=== PATIENT | male | born 1970 | race African-American/Black ===

== ENCOUNTER → 2020-03-01 10:11 | Outpatient (CLI) | payer BC, SELFPAY ==
--- NOTE | ~2020-03-01 | XR_ITS ---
EXAMINATION: XR lumbar spine 2-3V DATE: 03/01/2020 10:48 INDICATION: Low back pain TECHNIQUE: Anteroposterior and lateral views of the lumbar spine, and cone-down lateral view of the l umbosacral junction were obtained. COMPARISON: CT, 10/28/2017 FINDINGS: Bone alignment is normal. There is no fracture. There is mild loss of intervertebral disc s pace height at L4-5. The vertebral body heights are maintained. Degenerative osteophytes project from the anterior endplates of multiple vertebral bodies. Calcified atherosclerosis is noted. The bowel g as pattern is normal. IMPRESSION: 1. Mild lumbar spondylosis without acute findings. Reviewed, dictated and finalized at location A.
== END ==
PROVIDERS: PCP Family Medicine Adolescent Medicine; Visit Provider Physician Assistant
DX: M47.896 Other spondylosis, lumbar region (principal)
CPT/HCPCS: 72100

== ENCOUNTER → 2021-03-18 08:29 | Outpatient (CLI) | payer BC, SELFPAY ==
--- NOTE | ~2021-03-18 | MR_ITS ---
EXAMINATION: MR lumbar spine wo con EXAM DATE: 03/18/2021 09:11 INDICATION: Low back pain, bilateral leg pain. TECHNIQUE: Multi-sequential, multiplanar MR images of the lumbar spine were obtained without contrast . Sagittal T1, T2, T2 fat saturation images. Axial T2 weighted images. There is no prior study for comparison. FINDINGS: The vertebral bodies are aligned in the AP dimension. Vertebral body and disc heights are w ell-maintained. There are scattered focal signal abnormalities consistent with hemangiomata, otherwis e without focal suspicious marrow signal abnormalities. The conus medullaris terminates at the T12-L1 level and has normal signal intensity and morphology. Paraspinal soft tissue is unremarkable. L5-S1 small annular fissure. Level by level evaluation: T12-L1: Disc does not extend beyond the endplate margin. Facet arthropathy: None. Neural foraminal stenosis: No stenosis. Central canal stenosis: No stenosis. L1-L2: Disc does not extend beyond the endplate margin. Facet arthropathy: None. Neural foraminal stenosis: No stenosis. Central canal stenosis: No stenosis. L2-L3: Disc does not extend beyond the endplate margin. Facet arthropathy: Mild. Neural foraminal stenosis: No stenosis. Central canal stenosis: No stenosis. L3-L4: There is a minimal diffuse disc bulge. Facet arthropathy: Mild. Neural foraminal stenosis: No stenosis. Central canal stenosis: No stenosis. L4-L5: There is a mild diffuse disc bulge. Facet arthropathy: Mild. Neural foraminal stenosis: Mild bilateral. Central canal stenosis: No stenosis. L5-S1: There is a mild diffuse disc bulge, annular fissure. Facet arthropathy: Mild to moderate. Neural foraminal stenosis: Mild to moderate bilateral. Central canal stenosis: Mild. IMPRESSION: 1. Mild lumbar spondylosis. Reviewed, dictated and finalized at location B. IMPRESSION: 1. Mild lumbar spondylosis.
== END ==
PROVIDERS: PCP Family Medicine Adolescent Medicine
DX: M47.896 Other spondylosis, lumbar region (principal)
CPT/HCPCS: 72148

== ENCOUNTER 2022-05-24 10:13 | Emergency (ER) | payer OTHER, BC, SELFPAY ==
--- NOTE | ~2022-05-24 | XR_ITS ---
XR chest 2V DATE: 05/24/2022 14:07 INDICATION: Possible pneumonia TECHNIQUE: PA and lateral views COMPARISON: None FINDINGS: Normal heart size. No hilar or mediastinal enlargement is evident. There is prominent infiltrate and/atelectasis in the right lower lung and mild elevation of the right leaf of the diaphragm. Minimal discoid atelectasis or scarring in the left lower lung. No pleural effusion or pulmonary vascular congestion or pneumothorax is detected. Included skeletal structures are unremarkable other than degenerative spurring of the thoracic spine. IMPRESSION: Prominent patchy infiltrate or atelectasis in the right lower lung and mild elevation of right diaphragm Minimal discoid atelectasis or scarring, left lower lung Reviewed, dictated and finalized at location A. [employer]
--- NOTE | ~2022-05-24 | CT_ITS ---
EXAMINATION: CT lumbar spine wo/w con DATE: 05/24/2022 14:23 INDICATION: post surgical, lumbar fusion, rule out abscess . TECHNIQUE: Computed tomography (CT) of the lumbar spine was performed without and with 100 mL Omnipaq ue 350 intravenous contrast. Automated exposure control and iterative reconstruction technique were e mployed. The dose-length product was 2442.41 mGy-cm. COMPARISON: X-ray lumbar spine 03/01/2020, MR lumbar spine 03/18/2021. FINDINGS: Anterior and posterior L5-S1 fusion hardware. No hardware fracture or perihardware lucency. Interbody device is in good position. Multilevel degenerative disc disease, with predominantly later al bridging osteophytes at nearly all lumbar levels. 5 nonrib-bearing lumbar-type vertebral bodies. P edicles intact. Normal vertebral body alignment. Vertebral body heights preserved. Mild multilevel fa cet sclerosis. Mild presacral edema. Atherosclerotic arterial calcifications. Bilateral psoas muscle atrophy. No severe central canal or severe neural foraminal narrowing. Post surgical changes in the l ower lumbar soft tissues. 13 mm fluid collection in the right central paraspinous musculature at the level of L4 with faint rim enhancement. IMPRESSION: 1. 13 mm faintly rim-enhancing fluid collection in the right paraspinous musculature at L4, may repre sent a resolving postsurgical collection versus developing abscess. 2. Anterior and posterior L5-S1 fusion hardware. No CT evidence of hardware-related complication. 3. No acute osseous fracture or traumatic malalignment detected in the lumbar spine. Reviewed, dictated and finalized at location K. R TECH IMPRESSION: 1. 13 mm faintly rim-enhancing fluid collection in the right paraspinous muscul ature at L4, may represent a resolving postsurgical collection versus developin g abscess. 2. Anterior and posterior L5-S1 fusion hardware. No CT evidence of hardware-rel ated complication. 3. No acute osseous fracture or traumatic malalignment detected in the lumbar s pine.
[2022-05-24 10:51] VITALS: BP 146/87; PULSE 110; RESP 20; TEMP 37.4; O2SAT 99
[2022-05-24] MEDS: LACTATED RINGERS 1,000 ML 999 ML IV CONT (12:45)
[2022-05-24] MEDS: HYDROmorphone HCL INJ (*CRX) 1 MG/ML SYR IV PUSH (12:46)
[2022-05-24] MEDS: ONDANSETRON INJ 4 MG/2 ML VIAL IV PUSH (12:46)
[2022-05-24] MEDS: GABAPENTIN 300 MG CAPSULE PO (12:46)
[2022-05-24 12:54] LABS: Basophils Percent Auto 0.2 % (0.2-1.2); Eosinophils Absolute Auto 0.1 K/mm3 (0-0.3); Eosinophils Percent Auto 0.4 % (0-4.4); Hematocrit 37.4 % (42.0-52.0); Hemoglobin 12.5 g/dL (14.0-18.0); Immature Granulocyte Absolute 0.07 K/mm3 (0.00-0.031); Immature Granulocyte Percent A 0.5 % (0-0.5); Lymphocytes Absolute Auto 0.75 K/mm3 (0.9-3.2); Mean Corpuscular HGB Conc 33.4 g/dl (32-36); Mean Corpuscular Hemoglobin 28.8 pg (26-34); Mean Corpuscular Volume 86.2 fl (80-100); Mean Platelet Volume 9.9 fl (7.4-10.4); Monocytes Absolute Auto 1.1 K/mm3 (0.1-0.6); Monocytes Percent Auto 7.5 % (2.6-8.5); Neutrophils Absolute Auto 12.9 K/mm3 (1.3-6.7); Neutrophils Percent Auto 86.4 % (45.5-73.1); Platelet Count Result 322 k/mm3 (150-375); Red Blood Count 4.34 M/mm3 (4.6-6.20); Red Cell Distribution Width 13.3 % (11.5-14.5); White Blood Count 14.9 K/mm3 (4.5-10.0)
[2022-05-24 13:12] LABS: Appearance Urine Clear (Clear); Bilirubin Urine Negative (Negative); Blood Urine Trace-lysed (Negative); Color Urine Yellow (Yellow); Glucose Urine UA Negative (Negative); Ketones Urine Negative (Negative); Leukocyte Esterase Ur Trace LEU/UL (Negative); Nitrate Urine Negative (Negative); Protein Urine Negative (Negative); Urobilinogen Urine 0.2 mg/dL (<2.0); pH Urine 5.5 (5.0-9.0)
[2022-05-24 13:16] LABS: Add Urine Microscopic? YES; Bacteria Urine Trace /hpf; Mucus Urine Few /lpf; Squamous Epithelial Cell Urine Rare /hpf (Few)
[2022-05-24 13:17] LABS: INR 1.2; Prothrombin Time 14.4 Seconds (11.1-14.7)
[2022-05-24 13:18] LABS: Partial Thromboplastin Time 32.3 SECONDS (22.3-36.8)
[2022-05-24 13:19] LABS: Alanine Aminotransferase 18 U/L (6-50); Alkaline Phosphatase 131 U/L (38-126); Anion Gap 9 mmol/L (8-16); Aspartate Amino Transferase 20 U/L (17-59); Bilirubin,Total 1.1 mg/dL (0.2-1.3); Blood Urea Nitrogen 13 mg/dL (9-20); Calcium 8.9 mg/dL (8.4-10.2); Carbon Dioxide 27 mmol/L (22-30); Chloride 101 mmol/L (98-107); Estimated CRCL calculation 115 ml/min; Estimated Glomerular Filt Rate > 60; Glucose 118 mg/dL (65-110); Potassium 4.2 mmol/L (3.4-5.0); Sodium 137 mmol/L (137-145)
--- NOTE | 2022-05-24 13:22 | ED.BACK ---
HPI - Back Pain/Injury General Chief Complaint: Back Pain/Injury Stated Complaint: back pain Time Seen by Provider: 05/24/22 12:03 Source: patient and RN notes reviewed Mode of arrival: ambulatory Limitations: no limitations History of Present Illness HPI Narrative: This is a 51 year old male with history of chronic back issues s/p lumbar fusion who presents for evaluation of low back pain. Patient states he has lumbar fusion in March at [facility]. He states he has been doing well and he had post op check 10 days ago. He has been taking oxycodone 1 pill every 2 hours since his surgery. He developed severe pain on Wednesday. He states his pain is located in low back and it radiates down both legs. He has difficulty walking due to the pain. He denies leg swelling, numbness or tingling. He denies urinary retention or bowel incontinence. He also denies saddle anesthesia. He denies fever, chills, nausea or vomiting. He has not taken any pain medication since 2 am this morning. Related Data Allergies Allergy/AdvReac Type Severity Reaction Status Date / Time Sulfa (Sulfonamide Allergy Mild Verified 03/06/14 17:31 Antibiotics) Review of Systems Review of Systems: All systems reviewed & are unremarkable except as noted in HPI and below Constitutional: Constitutional: Denies chills, Denies fatigue and Denies fever(s) Cardiovascular: Cardiovascular: Denies chest pain and Denies radiating jaw, neck or arm pain Respiratory: Respiratory: Denies chest congestion Gastrointestinal: Gastrointestinal: Denies abdominal pain, Denies nausea and Denies vomiting Genitourinary: Genitourinary: Denies hematuria Musculoskeletal: Musculoskeletal: Denies no additional musculoskeletal complaints, Reports back pain and Denies arthralgias PMFSH Past Medical History Medical History (Updated 05/24/22 @ 21:03 by Shawnee Leyva MD) Hypokalemia Lumbar radiculopathy Surgical History Surgical History (Updated 05/24/22 @ 21:03 by Shawnee Leyva MD) S/P lumbar spinal fusion Social History Social History (Updated 05/24/22 @ 21:04 by Shawnee Leyva MD) Tobacco type: cigars Alcohol intake: never Substance use: never Exam Const: General: alert Nutritional Appearance: well nourished Orientation/consciousness: patient oriented x3 Other: patient appears to be pain HENMT: Head: normal to inspection Eyes: EOM: EOMs intact bilaterally Chest: Chest palpation & inspection: normal inspection of the chest Resp: Effort & Inspection: normal respiratory effort Auscultation: clear to auscultation bilaterally Cardio: Rate: regular rate Rhythm: regular rhythm Heart sounds: no murmurs GI: Auscultation: normal bowel sounds Other: soft, nontenderness ; there is healin low midline incision that is closed, no drainage, no erythema. Back/Spine/Pelvis: Cervical Spine: cervical ROM normal Thoracic/Lumbar Spine: Thoracic/lumbar spine scar(s) (healing lumbar incision- no erythema, no drainage, no TTP), No thoracic spinal tenderness and No lumbar spinal tenderness Skin: General skin exam: normal color Rashes: no rashes Wounds: no wounds Neuro: General: patient oriented x3, moves all extremities, no meningeal signs and CN's II-XI intact bilaterally Other: sensation intact Extrem: General: normal to inspection Other: bilateral pedal pulses present, no sign of ischemia, sensation intact Psych: Mental Status: mental status grossly normal Affect: normal affect Attitude: cooperative Course Reevaluation(s) Reevaluation #1: Patient's pain has improved. He does not have signs of cauda equina. I discussed case with DR. London with spine. He states patient could be given Toradol and he can be discharged. No steroids to be given at this point. Patien will be started on antibiotics for possible lung infiltrate. Surgical sites do not look infected so I do not believe abscess. Dr. London states he will get patient
[2022-05-24 13:32] LABS: CRP 20.6 mg/dL (<1.0)
[2022-05-24 15:26] LABS: Influenza A QL RT-PCR Negative (Negative); Influenza B QL RT-PCR Negative (Negative); SARS-CoV-2 RNA PCR Negative
[2022-05-24] MEDS: KETOROLAC 30 MG/ML VIAL (*BKC) IV PUSH (16:36)
[2022-05-24 17:29] VITALS: BP 144/74; PULSE 88; RESP 18; O2SAT 99
== END 2022-05-24 17:29 | disposition home or self-care (01) ==
PROVIDERS: Emergency Provider General Practice; PCP Family Medicine Adolescent Medicine
DX: M54.16 Radiculopathy, lumbar region (principal); R91.8 Other nonspecific abnormal finding of lung field; Z20.822 Contact with and (suspected) exposure to COVID-19; Z98.1 Arthrodesis status
CPT/HCPCS: 36415; 71046; 72133; 80053; 81001; 85025; 85610; 85730; 86140; 87636; 96361; 96374; 96375; 99284; A9270; J1170; J1885; J2405; J7120; Q9967

== ENCOUNTER 2023-04-07 03:16 | Day surgery (SDC) | payer BC, SELFPAY ==
[2023-03-26 11:37] VITALS: BMI 25.9
[2023-04-07 07:36] VITALS: BP 128/76; PULSE 96; RESP 18; TEMP 36.3; O2SAT 100; BMI 26.6
[2023-04-07] MEDS: LACTATED RINGERS 1,000 ML 150 ML IV CONT (07:52)
--- NOTE | 2023-04-07 08:24 | WPDANESEPPF ---
Anes - Initial Pre Proc Eval Procedure: Operation Date: 04/07/23 09:00 Proposed Procedures p Screening Colonoscopy - Mustapha Saleh MD Date/Time: 04/07/23 08:24 Surgeon: Mustapha Saleh MD Pre Op Diagnosis: neoplasm screening Patient Data Age: 52 Gender: M Height: 1.78 m Weight: 84.1 kg Last Vital Signs Temp 97.3 F L 04/07/23 07:36 Pulse 96 04/07/23 07:36 Resp 18 04/07/23 07:36 BP 128/76 04/07/23 07:36 Pulse Ox 100 04/07/23 07:36 O2 Del Method Room Air 04/07/23 07:36 Allergies Allergy/AdvReac Type Severity Reaction Status Date / Time Sulfa (Sulfonamide Allergy Mild Itching Verified 04/07/23 07:43 Antibiotics) Home Medications Medication Instructions Recorded Confirmed Type amlodipine 10 mg tablet 10 mg PO DAILY #90 tabs 01/21/23 04/07/23 Rx meloxicam 15 mg tablet 15 mg PO DAILY #90 tabs 01/21/23 04/07/23 Rx Patient hx anesthesia problems: none Family hx anesthesia problems: none Results Review: All pre-operative results and documents have been reviewed as part of the pre-operative evaluation. [facility] Past Medical History Medical History Hypokalemia Lumbar radiculopathy Surgical History Surgical History S/P lumbar spinal fusion L5-S1 fusion 04/02/22 with [facility] Family History Family History Mother Breast cancer Sibling Diabetes mellitus Social History Social History Smoking status: Current some day smoker Tobacco type: cigars Additional smoking assessment comments: Never smoked cigarettes, has an occasional cigar Alcohol intake: current Drinks per week: 5 Substance use: never Substance use type: does not use Lack of Transportation: No Lack of Food: Never True Current Housing: I Have Housing Difficulty Paying Gas/Electric Bills: No Difficulty Paying for Meds: No Currently Unemployed: No Education: High School Diploma/GED Difficulty w/ Childcare or Family Care: No Living arrangements: with family Spiritual care concerns: No Anes - Eval Final PreProcedure Day of Procedure 04/07/23 08:24 Patient weight: normal Heart: regular rate and rhythm Lungs: clear to auscultation Airway: Mallampati scale class II Neurological: alert and oriented Last oral intake: >/= 8 hours ASA classification: II Emergent: no Anesthetic plan: proceed Anesthesia type and monitoring: general GIVS and standard monitoring Results Review: All pre-operative results and documents have been reviewed as part of the pre-operative evaluation. Informed Consent: The patient's anesthetic plan and its attendant risks and benefits were discussed with the patient/family/POA. Questions were solicited and answers provided to the satisfaction of the patient/family/POA.
--- NOTE | 2023-04-07 08:33 | PM.HPGS ---
History of Present Illness History of Present Illness Consent: Risks, benefits, and alternatives have been discussed and questions answered. Patient agrees to proceed with procedure. Chief complaint: neoplasm screening Narrative: Jayant Moraes is a 52 year old male here for first screening colonoscopy Review of Systems Constitutional: Constitutional: Denies headache(s) and Denies weakness Eyes: Eyes: Denies blurry vision ENT: Reports Normal hearing present, Denies headache(s) and Denies neck pain Cardiovascular: Cardiovascular: Denies chest pain and Denies dyspnea Respiratory: Respiratory: Denies dyspnea Gastrointestinal: Gastrointestinal: Reports no additional gastrointestinal complaints Genitourinary: Genitourinary: Denies dysuria Musculoskeletal: Musculoskeletal: Denies neck pain Integumentary/Breasts: Skin/Breast: Denies dry skin Neurologic: Reports Normal hearing present, Denies headache(s) and Denies weakness Psychiatric: Psychiatric: Denies anxiety Endocrine: Endocrine: Denies change in body appearance Hematologic/Lymphatic: Hematologic/Lymphatic: Denies easy bleeding Allergic/Immunologic: Allergic/Immunologic: Denies urticaria PMFSH Past Medical History Medical History Hypokalemia Lumbar radiculopathy Surgical History Surgical History S/P lumbar spinal fusion L5-S1 fusion 04/02/22 with [facility] Family History Family History Mother Breast cancer Sibling Diabetes mellitus Social History Social History Smoking status: Current some day smoker Tobacco type: cigars Additional smoking assessment comments: Never smoked cigarettes, has an occasional cigar Alcohol intake: current Drinks per week: 5 Substance use: never Substance use type: does not use Lack of Transportation: No Lack of Food: Never True Current Housing: I Have Housing Difficulty Paying Gas/Electric Bills: No Difficulty Paying for Meds: No Currently Unemployed: No Education: High School Diploma/GED Difficulty w/ Childcare or Family Care: No Living arrangements: with family Spiritual care concerns: No Meds Home Medications and Allergies Home Medications Medication Instructions Recorded Confirmed Type amlodipine 10 mg tablet 10 mg PO DAILY #90 tabs 01/21/23 04/07/23 Rx meloxicam 15 mg tablet 15 mg PO DAILY #90 tabs 01/21/23 04/07/23 Rx Allergies Allergy/AdvReac Type Severity Reaction Status Date / Time Sulfa (Sulfonamide Allergy Mild Itching Verified 04/07/23 07:43 Antibiotics) Vital Signs Vital Signs - 24 hr 04/07/23 07:36 Temperature 97.3 F L Pulse Rate 96 Respiratory Rate 18 Blood Pressure 128/76 Pulse Oximetry 100 Oxygen Delivery Room Air Exam Const: General: comfortable and no acute distress HENMT: Face/Nose/Sinus: Normal nares present Eyes: General: appearance normal, both eyes and all related structures Neck: Neck: no JVD Resp: Auscultation: clear to auscultation bilaterally Cardio: Rate: regular rate Rhythm: regular rhythm GI: Inspection: non-distended GI Palp: Yes Soft to palpation Skin: General skin exam: normal color Neuro: General: gait normal Speech: normal speech Extrem: General: normal to inspection Psych: Mental Status: mental status grossly normal Assessment and Plan Assessment and plan (1) Colon cancer screening: Code(s): Z12.11 - Encounter for screening for malignant neoplasm of colon Status: Acute Assessment and Plan: colonoscopy
[2023-04-07 08:58] VITALS: BP 110/64; PULSE 78; RESP 17; O2SAT 100
[2023-04-07 09:08] VITALS: BP 129/82; PULSE 80; RESP 19; O2SAT 100
[2023-04-07 09:18] VITALS: BP 141/97; PULSE 73; RESP 12; O2SAT 100
== END 2023-04-07 09:23 | disposition home or self-care (01) ==
PROVIDERS: PCP Family Medicine Adolescent Medicine; Visit Provider Internal Medicine Gastroenterology
PROC: 0DJD8ZZ Inspection of Lower Intestinal Tract, Via Natural or Artificial Opening Endoscopic (ICD-10-PCS; CPT 45378; principal; 2023-04-07 09:00)
DX: Z12.11 Encounter for screening for malignant neoplasm of colon (principal); K57.30 Diverticulosis of large intestine without perforation or abscess without bleeding; K63.5 Polyp of colon; K64.8 Other hemorrhoids; E87.6 Hypokalemia; F17.290 Nicotine dependence, other tobacco product, uncomplicated; Z80.3 Family history of malignant neoplasm of breast
CPT/HCPCS: 45385; 88305; J2704; J7120